=== PATIENT | female | born 1985 | race Asian ===

== ENCOUNTER 2016-11-10 11:17 | Emergency (ER) | payer SELFPAY ==
[2016-11-10 11:46] VITALS: BP 100/72; PULSE 82; RESP 18; TEMP 98.2; O2SAT 97
--- NOTE | 2016-11-10 12:06 | UCPHY ---
H & P Time Seen by Provider: 11/10/16 11:49 Patient Type: Established HPI/ROS: This patient is a patient at 9 weeks by dates and a positive home test who presents with vaginal spotting that started this morning associated with mild pelvic cramping that is nonradiating. She has no other associated symptoms. She has not seen an drop forge operator yet for this . She has no exacerbating factors for her symptoms. ROS: No fevers or chills. No lightheadedness. No nausea vomiting. She reports no urinary symptoms. No back pain. In 7 point ROS is otherwise negative. Past Medical/Surgical History: with a healthy 13 month baby boy Smoking Status: Never smoked Physical Exam: Vital signs normal General Appearance: Pleasant 31-year-old female Alert, no distress. Eyes: Pupils equal and round no pallor or injection. ENT, Mouth: Mucous membranes moist. Respiratory: There are no retractions, lungs are clear to auscultation. Cardiovascular: Regular rate and rhythm. Gastrointestinal: Soft, uterus consistent with dates with no tenderness. Bowel sounds normal. Back: No CVA tenderness Neurological: Alert without focal deficits Skin: Warm and dry, no rashes. Musculoskeletal: Neck is supple nontender. Extremities are symmetrical, full range of motion. Psychiatric: Mood and affect are normal DIFFERENTIAL DIAGNOSIS: After history and physical exam differential diagnosis was considered for ectopic , threatened miscarriage, miscarriage Constitutional: Initial Vital Signs Temperature (C) 36.8 C 11/10/16 11:43 Heart Rate 82 11/10/16 11:43 Respiratory Rate 18 11/10/16 11:43 Blood Pressure 100/72 11/10/16 11:43 O2 Sat (%) 97 11/10/16 11:43 O2 Delivery Mode Room Air Allergies/Adverse Reactions: No Known Allergies Allergy (Verified 11/10/16 11:42) Home Medications: Medication Instructions Recorded NK [No Known Home Meds] 11/10/16 Medical Decision Making - Diagnostics Imaging: Pelvic ultrasound: A 7 week [address] Obie Shine-radiologist with no ovarian abnormalities. No subchorionic hemorrhage. No other abnormalities. ED Course/Re-evaluation: I counseled patient regarding threatened miscarriage. No UTI or other complicating factors. She is stable without anemia. We ruled out ectopic . - Data Points Laboratory Results: Laboratory Results 11/10/16 12:15 17 11/10/16 11/10/16 12:45 12:15 12:15 WBC 5.84 10^3/uL 10^3/uL (3.80-9.50) RBC 5.07 10^6/uL 10^6/uL (4.18-5.33) Hgb 14.7 g/dL g/dL (12.6-16.3) Hct 44.4 % % (38.0-47.0) MCV 87.6 fL fL (81.5-99.8) MCH 29.0 pg pg (27.9-34.1) MCHC 33.1 g/dL g/dL (32.4-36.7) RDW 13.2 % % (11.5-15.2) Plt Count 247 10^3/uL 10^3/uL (150-400) MPV 11.2 fL fL (8.7-11.7) Neut % (Auto) 68.8 % % (39.3-74.2) Lymph % (Auto) 26.0 % % (15.0-45.0) [place] % (Auto) 4.1 % L % (4.5-13.0) Eos % (Auto) 0.5 % L % (0.6-7.6) Baso % (Auto) 0.3 % % (0.3-1.7) Nucleat RBC Rel Count 0.0 % % (0.0-0.2) Absolute Neuts (auto) 4.01 10^3/uL 10^3/uL (1.70-6.50) Absolute Lymphs (auto) 1.52 10^3/uL 10^3/uL (1.00-3.00) Absolute Monos (auto) 0.24 10^3/uL L 10^3/uL (0.30-0.80) Absolute Eos (auto) 0.03 10^3/uL 10^3/uL (0.03-0.40) Absolute Basos (auto) 0.02 10^3/uL 10^3/uL (0.02-0.10) Absolute Nucleated RBC 0.00 10^3/uL 10^3/uL (0-0.01) Immature Gran % 0.3 % % (0.0-1.1) Immature Gran # 0.02 10^3/uL 10^3/uL (0.00-0.10) Beta HCG, Quant 11569.00 mIU/mL H mIU/mL (0-4.83) Urine Color YELLOW Urine Appearance CLEAR Urine pH 7.5 (5.0-7.5) Ur Specific [place] 1.015 (1.002-1.030) Urine Protein NEGATIVE (NEGATIVE) Urine Ketones NEGATIVE (NEGATIVE) Urine Blood 1+ H (NEGATIVE) Urine Nitrate NEGATIVE (NEGATIVE) Urine Bilirubin NEGATIVE (NEGATIVE) Urine Urobilinogen 0.2 EU EU (0.2-1.0) Ur Leukocyte Esterase NEGATIVE (NEGATIVE) Urine RBC 1-3 /hpf /hpf (0-3) Urine WBC 0-1 /hpf /hpf (0-3) Ur Epithelial Cells TRACE /lpf /lpf (NONE-1+) Urine Glucose NEGATIVE (NEGATIVE) Departure - Departure Disposition: Home, Routine, Self-Care Clinical Impression: Threatened miscarriage Condition: Good Instructions: Threatened Miscarriage (ED) Additional Instructions: Diagnosis: Threatened miscarriage Your ultrasound shows an intrauterine with the fetus size that appears equivalent to 7 weeks 6 days with an estimated delivery date of June 23, 2017 Plan: Drink plenty of fluids Avoid sexual intercourse until least few days after bleeding has resolved. Avoid vigorous activity that involves any significant bouncing her severe exertion until the bleeding has resolved. Follow up with the OBGYN doctor for a recheck. Call Dr. Carolina to arrange his appointment for sometime this week. Go to the emergency department for any significant worsening of symptoms despite treatment plan. Referrals: NONE *PRIMARY CARE P,. [Primary Care Provider] - As per Instructions Angie Carolina MD [Medical Doctor] - As per Instructions - PQRS PQRS Measurement: NA
[2016-11-10 12:36] LABS: % IMMATURE GRANULYOCYTES 0.3 % (0.0-1.1); ABSOLUTE IMMATURE GRANULOCYTES 0.02 10^3/uL (0.00-0.10); ADD DIFF? NO; ADD MORPH? NO; ADD SCAN? NO; ATYPICAL LYMPHOCYTE FLAG 20 (0-99); FRAGMENT RBC FLAG 0 (0-99); HEMATOCRIT 44.4 % (38.0-47.0); HEMOGLOBIN 14.7 g/dL (12.6-16.3); LEFT SHIFT FLG 0 (0-99); LIPEMIA HEMOLYSIS FLAG 80 (0-99); MEAN CELL HEMOGLOBIN CONCENTR. 33.1 g/dL (32.4-36.7); MEAN CELL VOLUME 87.6 fL (81.5-99.8); MEAN PLATELET VOLUME 11.2 fL (8.7-11.7); PLATELET CLUMPS FLAG 0 (0-99); PLATELET COUNT 247 10^3/uL (150-400); RED BLOOD CELL COUNT 5.07 10^6/uL (4.18-5.33); RED CELL DISTRIBUTION WIDTH 13.2 % (11.5-15.2)
[2016-11-10 13:11] LABS: COLOR YELLOW; LEUKOCYTE ESTERASE,URINE NEGATIVE (NEGATIVE); NITRITE,URINE NEGATIVE (NEGATIVE); PH,URINE 7.5 (5.0-7.5)
[2016-11-10 13:26] LABS: WBC,URINE 0-1 /hpf (0-3)
== END 2016-11-10 14:00 | disposition home or self-care (01) ==
LOC: CED 11:17
DX: O20.0 Threatened abortion (principal); Z3A.01 Less than 8 weeks gestation of pregnancy
CPT/HCPCS: 81003-PO; 81015-PO; 84702-PO; 85025-PO; 99214-PO; G0463-PO

== ENCOUNTER 2016-11-11 04:38 | Emergency (ER) | payer MEDICAID, OTHER ==
[2016-11-11 04:45] VITALS: RESP 16; TEMP 98.1
--- NOTE | 2016-11-11 04:54 | EDPHY ---
H & P Stated Complaint: 8 week miscarriage Time Seen by Provider: 11/11/16 04:47 HPI/ROS: Chief complaint: , vaginal bleeding HPI: 31-year-old female, who is approximately 8 weeks gestation presenting with abdominal cramping and vaginal bleeding. Patient seen yesterday at [facility] for spotting. She had an ultrasound at that time which showed a 7 week 6 day IUP. Patient states that at 2 o'clock this morning she started having increase in vaginal bleeding bleeding and has been soaking 3 pads an hour for the last 3 hours. She is having increasing cramping as well to a 4/10. She is not lightheaded. ROS: 10 point Review of Systems is negative except as noted in the HPI. Past medical history: None Medications: None Allergies: No known drug allergies Physical exam: Gen: Awake, Alert, No Distress HEENT: Nose: no rhinorrhea Eyes: PERRLA, EOMI Mouth: Moist mucosa Neck: Supple, no JVD Chest: nontender, lungs clear to auscultation Heart: S1, S2 normal, no murmur Abd: Soft, non-tender, no guarding Back: no CVA tenderness, no midline tenderness Pelvic exam: Speculum examination shows tissue passing through an open cervical os. This was removed by me. There is no residual tissue in the cervical os. She continued to have some minimal oozing. There was no active bleeding. Ext: no edema, non-tender Skin: no rash Neuro: CN II-XII intact, Sensation grossly intact, Strength 5/5 in bilateral upper and lower extremities - Personal History LMP (Females 10-55): Current Tetanus/Diphtheria Vaccine: Yes Current Tetanus Diphtheria and Acellular Pertussis (TDAP): Yes Tetanus Vaccine Date: 06/16/2015 - Medical/Surgical History Hx Asthma: No Hx Chronic Respiratory Disease: No Hx Diabetes: No Hx Cardiac Disease: No Hx Renal Disease: No Hx Cirrhosis: No Hx Alcoholism: No Hx HIV/AIDS: No Hx Splenectomy or Spleen Trauma: No Other PMH: denies - Social History Smoking Status: Never smoked Constitutional: Initial Vital Signs Temperature (C) 36.7 C 11/11/16 04:42 Heart Rate 88 11/11/16 04:42 Respiratory Rate 16 11/11/16 04:42 Blood Pressure 95/77 L 11/11/16 04:42 O2 Sat (%) 98 11/11/16 04:42 O2 Delivery Mode Room Air Allergies/Adverse Reactions: No Known Allergies Allergy (Verified 11/11/16 04:46) Home Medications: Medication Instructions Recorded NK [No Known Home Meds] 11/11/16 Medical Decision Making ED Course/Re-evaluation: 31-year-old 7 week 7 day woman with completion of miscarriage. Patient had tissue in the cervical os consistent with products of conception. This was removed by me without difficulty. Specimen was sent to pathology. Patient had minimal bleeding after that the cervical os was empty. I have checked the patient's blood bank history and she is noted to be O positive. There is no indication for RhoGAM at this time. Patient was observed in the emergency department. Bleeding slowed. She remained hemodynamically normal. Patient was discharged with follow up with OBGYN and instructions return for any concerns. Departure - Departure Disposition: Home, Routine, Self-Care Clinical Impression: Complete miscarriage Condition: Good Instructions: Miscarriage (ED) Additional Instructions: Return to the emergency department for persistent heavy bleeding, increasing pain, fevers, chills, abnormal vaginal discharge, or any other concerns. Follow up with your OBGYN in 3 or 4 days for re-evaluation. Referrals: NONE *PRIMARY CARE P,. [Primary Care Provider] - As per Instructions
[2016-11-11 05:53] VITALS: BP 102/65; PULSE 72; O2SAT 95
== END 2016-11-11 06:05 | disposition home or self-care (01) ==
DX: O03.9 Complete or unspecified spontaneous abortion without complication (principal)
CPT/HCPCS: 96374

== ENCOUNTER 2017-07-15 11:24 | Emergency (ER) | payer MEDICAID ==
[2017-07-15 11:30] VITALS: TEMP 97.9
[2017-07-15] MEDS ORDERED: NS 1,000 ML IV ONE (13:37)
[2017-07-15] MEDS ORDERED: ONDANSETRON 4 MG/2 ML VIAL IVP ONE (13:37)
--- NOTE | 2017-07-15 13:40 | EDPHY ---
H & P Time Seen by Provider: 07/15/17 13:02 HPI/ROS: CHIEF COMPLAINT: "Hyperemesis " HISTORY OF PRESENT ILLNESS: Patient is a 32-year-old female G3 para 1 with a last menstrual period 05/17/2017. She was sent in the emergency department from [facility] for ongoing nausea and vomiting-hyperemesis. Patient is roughly 8 weeks . She had significant vomiting with her previous pregnancies. Patient denies any fevers or chills. No abdominal pain. No diarrhea. No dysuria or frequency. REVIEW OF SYSTEMS: My complete review of systems is negative except as mentioned in the HPI. Past Medical/Surgical History: , hyperemesis Past surgical history: Negative Social history: The patient does not smoke Smoking Status: Never smoked Physical Exam: Vitals noted GENERAL: Well-appearing, in no acute distress, alert. HEENT: Eyes normal to inspection, normal pharynx, no signs of dehydration. NECK: No thyromegaly, no lymphadenopathy, supple. RESPIRATORY: Clear to auscultation bilaterally, no rales, rhonchi or wheezing. CVS: Regular rate and rhythm, no rubs, murmurs, or gallops. ABDOMEN: Soft, nontender, nondistended, no organomegaly. BACK: Normal to inspection, no CVA tenderness. SKIN: Normal color, no rash, warm, dry. No pallor. EXTREMITIES: No pedal edema, no calf tenderness, no Homans sign or cords, no joint swelling. NEURO/PSYCH: Alert and oriented, normal mood and affect, normal motor sensory exam. Constitutional: Initial Vital Signs Temperature (C) 36.6 C 07/15/17 11:27 Heart Rate 106 H 07/15/17 11:27 Respiratory Rate 15 07/15/17 11:27 Blood Pressure 96/71 L 07/15/17 11:27 O2 Sat (%) 97 07/15/17 11:27 O2 Delivery Mode Room Air Allergies/Adverse Reactions: No Known Allergies Allergy (Verified 11/11/16 04:46) Home Medications: Medication Instructions Recorded NK [No Known Home Meds] 11/11/16 Medical Decision Making ED Course/Re-evaluation: In the emergency department I discussed possible etiologies. I discussed treatment options. This did include Zofran. The patient understands the risks and benefits. Patient was given normal saline 1 L IV for hydration. She was given Zofran 4 mg IV for nausea. Laboratory studies were ordered. The patient has a known and is 8 weeks . Patient is mildly anemic. And gap 17. Her CO2 is 20. The on recheck the patient is doing well. She has no complaints of abdominal pain, nausea or vomiting. On repeat exam abdomen is soft, nontender nondistended. She was given warnings prior to leaving. She will return with worsening symptoms. Differential Diagnosis: My differential includes but is not limited to , hyperemesis, electrolyte abnormality, sugar abnormality, dehydration, miscarriage - Data Points Laboratory Results: Laboratory Results 07/15/17 13:40 07/15/17 13:40 07/15/17 07/15/17 13:40 13:40 WBC 6.72 10^3/uL 10^3/uL (3.80-9.50) RBC 4.32 10^6/uL 10^6/uL (4.18-5.33) Hgb 12.7 g/dL g/dL (12.6-16.3) Hct 37.3 % L % (38.0-47.0) MCV 86.3 fL fL (81.5-99.8) MCH 29.4 pg pg (27.9-34.1) MCHC 34.0 g/dL g/dL (32.4-36.7) RDW 13.1 % % (11.5-15.2) Plt Count 224 10^3/uL 10^3/uL (150-400) MPV 11.0 fL fL (8.7-11.7) Neut % (Auto) 76.1 % H % (39.3-74.2) Lymph % (Auto) 18.5 % % (15.0-45.0) [place] % (Auto) 4.5 % % (4.5-13.0) Eos % (Auto) 0.3 % L % (0.6-7.6) Baso % (Auto) 0.3 % % (0.3-1.7) Nucleat RBC Rel Count 0.0 % % (0.0-0.2) Absolute Neuts (auto) 5.12 10^3/uL 10^3/uL (1.70-6.50) Absolute Lymphs (auto) 1.24 10^3/uL 10^3/uL (1.00-3.00) Absolute Monos (auto) 0.30 10^3/uL 10^3/uL (0.30-0.80) Absolute Eos (auto) 0.02 10^3/uL L 10^3/uL (0.03-0.40) Absolute Basos (auto) 0.02 10^3/uL 10^3/uL (0.02-0.10) Absolute Nucleated RBC 0.00 10^3/uL 10^3/uL (0-0.01) Immature Gran % 0.3 % % (0.0-1.1) Immature Gran # 0.02 10^3/uL 10^3/uL (0.00-0.10) Sodium 138 mEq/L mEq/L (134-144) Potassium 3.6 mEq/L mEq/L (3.5-5.2) Chloride 101 mEq/L mEq/L (97-110) Carbon Dioxide 20 mEq/l L mEq/l (22-31) Anion Gap 17 mEq/L H mEq/L (8-16) BUN 15 mg/dL mg/dL (7-23) Creatinine 0.6 mg/dL mg/dL (0.6-1.0) Estimated GFR > 60 Glucose 71 mg/dL mg/dL (70-100) Calcium 9.6 mg/dL mg/dL (8.5-10.4) Total Bilirubin 0.4 mg/dL mg/dL (0.1-1.4) Conjugated Bilirubin 0.0 mg/dL mg/dL (0.0-0.5) Unconjugated Bilirubin 0.4 mg/dL mg/dL (0.0-1.1) AST 23 IU/L IU/L (14-46) ALT 27 IU/L IU/L (9-52) Alkaline Phosphatase 44 IU/L IU/L (38-126) Total Protein 7.0 g/dL g/dL (6.3-8.2) Albumin 4.4 g/dL g/dL (3.5-5.0) Lipase 61 IU/L IU/L (23-300) Medications Given: Discontinued Medications Sodium Chloride (Ns) 1,000 mls @ 0 mls/hr IV EDNOW ONE; Wide Open PRN Reason: Protocol Stop: 07/15/17 13:38 Last Admin: 07/15/17 13:54 Dose: 1,000 mls Ondansetron HCl (Zofran) 4 mg IVP EDNOW ONE Stop: 07/15/17 13:38 Last Admin: 07/15/17 13:54 Dose: 4 mg Departure - Departure Disposition: Home, Routine, Self-Care Clinical Impression: Nausea & vomiting Qualifiers: Vomiting type: unspecified Vomiting Intractability: intractable Qualified Code( s): R11.2 - Nausea with vomiting, unspecified Hyperemesis Qualifiers: Vomiting type: unspecified Nausea presence: with nausea Qualified Code(s): R11.2 - Nausea with vomiting, unspecified Condition: Good Instructions: Hyperemesis Gravidarum (ED) Additional Instructions: Return with worsening abdominal pain, nausea, vomiting or any other concerns. Referrals: [facility] [Provider Group] - 2-3 days, call for appt.
[2017-07-15 14:24] VITALS: RESP 16
[2017-07-15 14:24] LABS: % IMMATURE GRANULYOCYTES 0.3 % (0.0-1.1); ABSOLUTE IMMATURE GRANULOCYTES 0.02 10^3/uL (0.00-0.10); ADD DIFF? NO; ADD MORPH? NO; ADD SCAN? NO; ATYPICAL LYMPHOCYTE FLAG 20 (0-99); FRAGMENT RBC FLAG 0 (0-99); HEMATOCRIT 37.3 % (38.0-47.0); HEMOGLOBIN 12.7 g/dL (12.6-16.3); LEFT SHIFT FLG 0 (0-99); LIPEMIA HEMOLYSIS FLAG 90 (0-99); MEAN CELL HEMOGLOBIN 29.4 pg (27.9-34.1); MEAN CELL VOLUME 86.3 fL (81.5-99.8); PLATELET CLUMPS FLAG 0 (0-99); PLATELET COUNT 224 10^3/uL (150-400); RED BLOOD CELL COUNT 4.32 10^6/uL (4.18-5.33); RED CELL DISTRIBUTION WIDTH 13.1 % (11.5-15.2)
[2017-07-15 14:34] LABS: ALANINE AMINOTRANSFERASE 27 IU/L (9-52); ALBUMIN 4.4 g/dL (3.5-5.0); ALKALINE PHOSPHATASE 44 IU/L (38-126); ANION GAP 17 mEq/L (8-16); ASPARTATE AMINOTRANSFERASE 23 IU/L (14-46); BILIRUBIN,TOTAL 0.4 mg/dL (0.1-1.4); BILIRUBIN-UNCONJUGATED 0.4 mg/dL (0.0-1.1); CALCIUM 9.6 mg/dL (8.5-10.4); CARBON DIOXIDE 20 mEq/l (22-31); CHLORIDE 101 mEq/L (97-110); CREATININE 0.6 mg/dL (0.6-1.0); GLOMERULAR FILTRATION RATE > 60; GLUCOSE 71 mg/dL (70-100); POTASSIUM 3.6 mEq/L (3.5-5.2); SODIUM 138 mEq/L (134-144)
[2017-07-15 15:36] VITALS: BP 90/61; PULSE 68; O2SAT 97
== END 2017-07-15 15:37 | disposition home or self-care (01) ==
DX: O21.0 Mild hyperemesis gravidarum (principal); E86.9 Volume depletion, unspecified; Z3A.08 8 weeks gestation of pregnancy
CPT/HCPCS: 96374; J2405

== ENCOUNTER 2017-08-07 22:18 | Emergency (ER) | payer MEDICAID ==
--- NOTE | 2017-08-07 22:59 | EDPHY ---
H & P Stated Complaint: pt says 12 weeks preg, cramping/discharge starting last pm Time Seen by Provider: 08/07/17 22:38 HPI/ROS: CHIEF COMPLAINT: , cramping HISTORY OF PRESENT ILLNESS: 32-year-old SAB 2 female currently 11 weeks , followed by [facility], complaining of suprapubic cramping sensation since yesterday with passage of a "colorful discharge ". Not described as frankly bloody. No urinary abnormality. No fever no chills. No chest pain. No nausea or vomiting. No back or flank pain. PRIMARY CARE PROVIDER: [facility] REVIEW OF SYSTEMS: A ten point review of systems was performed and is negative with the exception of the items mentioned in the HPI PAST MEDICAL & SURGICAL HISTORY: SAB 2 female currently 11 weeks SOCIAL HISTORY: Nonsmoker PHYSICAL EXAM (Prior to examination, patient consented to physical exam, hands were washed and my usual and customary physical exam procedures followed) 1) GENERAL: Well-developed, well-nourished, alert and oriented. Appears to be in no acute distress. 2) HEAD: Normocephalic, atraumatic 3) HEENT: Pupils equal, round, reactive to light bilaterally. Sclera anicteric. 4) NECK: Full range of motion, no meningeal signs. 5) LUNGS: Clear auscultation bilaterally, no wheezes, no rhonchi, no retractions. 6) HEART: Regular rate and rhythm, no murmur, no heave, no gallop. 7) ABDOMEN: No guarding, tender to palpations suprapubic region, negative McBurney's point pain negative Haines's negative peritoneal sign, 8) MUSCULOSKELETAL: Moving all extremities, no focal areas of tenderness, no obvious trauma. No peripheral edema or discoloration. 9) BACK: No CVA tenderness, no midline vertebral tenderness, no fluctuance, no step-off, no obvious trauma, no visual or palpable abnormality. 10) SKIN: No rash, no petechiae. 11) Psychiatric: Patient is oriented X 3, there is no agitation. DIFFERENTIAL DIAGNOSIS: [In no particular order including but notl imited to threatened , spontaneous , demise - Personal History Tetanus Vaccine Date: 06/16/2015 - Medical/Surgical History Hx Asthma: No Hx Chronic Respiratory Disease: No Hx Diabetes: No Hx Cardiac Disease: No Hx Renal Disease: No Hx Cirrhosis: No Hx Alcoholism: No Hx HIV/AIDS: No Hx Splenectomy or Spleen Trauma: No Other PMH: denies - Social History Smoking Status: Never smoked Constitutional: Initial Vital Signs Temperature (C) 36.9 C 08/07/17 22:32 Heart Rate 101 H 08/07/17 22:32 Respiratory Rate 16 08/07/17 22:32 Blood Pressure 103/81 H 08/07/17 22:32 O2 Sat (%) 97 08/07/17 22:32 O2 Delivery Mode Room Air Allergies/Adverse Reactions: No Known Allergies Allergy (Verified 08/07/17 22:35) Home Medications: Medication Instructions Recorded Cephalexin [Keflex] 500 mg PO TID 7 Days cap 08/08/17 Medical Decision Making - Diagnostics Imaging Results: Imaging Impressions Obstetrics Ultrasound 08/07/17 22:40 Impression: 1. 11 week 5 day viable intrauterine gestation. Results called to Oli Robison PA-C, at 11:30 PM Images reviewed myself ED Course/Re-evaluation: 10:58 p.m.: Old medical records reviewed. Will obtain laboratory studies including Rh, urinalysis, pelvic ultrasound. Care of patient under supervision of secondary supervising physician Dr Browning . 12:10 a.m.: Re-evaluation I discussed her ultrasound results showing single living IUP. She is Rh positive. She is noted to have bacteriuria and pyuria. Urinalysis is cultured. She is started on Keflex. Recommend bedrest and follow up in 2 days with her OBGYN. In the meantime given usual and customary threatened precautions and instructions. - Data Points Laboratory Results: Laboratory Results 08/07/17 22:54 08/07/17 22:54 08/07/17 08/07/17 08/07/17 23:35 23:15 22:54 WBC RBC Hgb Hct MCV MCH MCHC RDW Plt Count MPV Neut % (Auto) Lymph % (Auto) [place] % (Auto) Eos % (Auto) Baso % (Auto) Nucleat RBC Rel Count Absolute Neuts (auto) Absolute Lymphs (auto) Absolute Monos (auto) Absolute Eos (auto) Absolute Basos (auto) Absolute Nucleated RBC Immature Gran % Immature Gran # Sodium 138 mEq/L mEq/L (134-144) Potassium 3.3 mEq/L L mEq/L (3.5-5.2) Chloride 104 mEq/L mEq/L (97-110) Carbon Dioxide 22 mEq/l mEq/l (22-31) Anion Gap 12 mEq/L mEq/L (8-16) BUN 9 mg/dL mg/dL (7-23) Creatinine 0.6 mg/dL mg/dL (0.6-1.0) Estimated GFR > 60 Glucose 84 mg/dL mg/dL (70-100) Calcium 9.1 mg/dL mg/dL (8.5-10.4) Beta HCG, Quant 477616.00 mIU/mL H mIU/mL (0.00-4.83) Urine Color YELLOW Urine Appearance MODERATELY TURBID Urine pH 7.0 (5.0-7.5) Ur Specific [place] 1.023 (1.002-1.030) Urine Protein NEGATIVE (NEGATIVE) Urine Ketones TRACE H (NEGATIVE) Urine Blood NEGATIVE (NEGATIVE) Urine Nitrate NEGATIVE (NEGATIVE) Urine Bilirubin NEGATIVE (NEGATIVE) Urine Urobilinogen NEGATIVE EU EU (0.2-1.0) Ur Leukocyte Esterase 1+ H (NEGATIVE) Urine RBC 5-10 /hpf H /hpf (0-3) Urine WBC 15-25 /hpf H /hpf (0-3) Ur Epithelial Cells 2+ /lpf H /lpf (NONE-1+) Calcium Oxalate Crystal PRESENT /hpf /hpf (NONE-1+) Amorphous Sediment PRESENT /hpf /hpf (NONE-1+) Urine Mucus 4+ /lpf H /lpf (NONE-1+) Urine Glucose NEGATIVE (NEGATIVE) Patient ABO/Rh O POSITIVE 08/07/17 22:54 WBC 16.33 10^3/uL H 10^3/uL (3.80-9.50) RBC 4.06 10^6/uL L 10^6/uL (4.18-5.33) Hgb 12.2 g/dL L g/dL (12.6-16.3) Hct 35.3 % L % (38.0-47.0) MCV 86.9 fL fL (81.5-99.8) MCH 30.0 pg pg (27.9-34.1) MCHC 34.6 g/dL g/dL (32.4-36.7) RDW 13.7 % % (11.5-15.2) Plt Count 255 10^3/uL 10^3/uL (150-400) MPV 10.4 fL fL (8.7-11.7) Neut % (Auto) 85.4 % H % (39.3-74.2) Lymph % (Auto) 10.8 % L % (15.0-45.0) [place] % (Auto) 3.1 % L % (4.5-13.0) Eos % (Auto) 0.2 % L % (0.6-7.6) Baso % (Auto) 0.1 % L % (0.3-1.7) Nucleat RBC Rel Count 0.0 % % (0.0-0.2) Absolute Neuts (auto) 13.95 10^3/uL H 10^3/uL (1.70-6.50) Absolute Lymphs (auto) 1.76 10^3/uL 10^3/uL (1.00-3.00) Absolute Monos (auto) 0.51 10^3/uL 10^3/uL (0.30-0.80) Absolute Eos (auto) 0.03 10^3/uL 10^3/uL (0.03-0.40) Absolute Basos (auto) 0.02 10^3/uL 10^3/uL (0.02-0.10) Absolute Nucleated RBC 0.00 10^3/uL 10^3/uL (0-0.01) Immature Gran % 0.4 % % (0.0-1.1) Immature Gran # 0.06 10^3/uL 10^3/uL (0.00-0.10) Sodium Potassium Chloride Carbon Dioxide Anion Gap BUN Creatinine Estimated GFR Glucose Calcium Beta HCG, Quant Urine Color Urine Appearance Urine pH Ur Specific [place] Urine Protein Urine Ketones Urine Blood Urine Nitrate Urine Bilirubin Urine Urobilinogen Ur Leukocyte Esterase Urine RBC Urine WBC Ur Epithelial Cells Calcium Oxalate Crystal Amorphous Sediment Urine Mucus Urine Glucose Patient ABO/Rh Medications Given: Discontinued Medications Cephalexin (Keflex 500 Mg Prepack#4) 1 btl TAKEHOME EDNOW ONE PRN Reason: Protocol Stop: 08/07/17 23:57 Last Admin: 08/07/17 23:59 Dose: 1 btl Cephalexin HCl (Keflex) 500 mg PO EDNOW ONE PRN Reason: Protocol Stop: 08/07/17 23:54 Last Admin: 08/07/17 23:59 Dose: 500 mg Departure - Departure Disposition: Home, Routine, Self-Care Clinical Impression: Threatened , Cystitis Condition: Good Instructions: Cephalexin (By mouth), Threatened Miscarriage (ED), Urinary Tract Infection in (ED) Additional Instructions: Return to emergency department if you develop fevers, chills, nausea, vomiting, worsening vaginal discharge or worsening cramping, or any other symptoms that concern you. Referrals: [facility] [Other] - 1 day without fail Prescriptions: Cephalexin [Keflex] 500 mg PO TID 7 Days cap
[2017-08-07 23:03] LABS: % IMMATURE GRANULYOCYTES 0.4 % (0.0-1.1); ABSOLUTE IMMATURE GRANULOCYTES 0.06 10^3/uL (0.00-0.10); ADD DIFF? NO; ADD MORPH? NO; ADD SCAN? NO; ATYPICAL LYMPHOCYTE FLAG 0 (0-99); FRAGMENT RBC FLAG 0 (0-99); HEMATOCRIT 35.3 % (38.0-47.0); HEMOGLOBIN 12.2 g/dL (12.6-16.3); LEFT SHIFT FLG 0 (0-99); LIPEMIA HEMOLYSIS FLAG 90 (0-99); MEAN CELL HEMOGLOBIN CONCENTR. 34.6 g/dL (32.4-36.7); MEAN CELL VOLUME 86.9 fL (81.5-99.8); MEAN PLATELET VOLUME 10.4 fL (8.7-11.7); PLATELET CLUMPS FLAG 0 (0-99); PLATELET COUNT 255 10^3/uL (150-400); RED BLOOD CELL COUNT 4.06 10^6/uL (4.18-5.33); RED CELL DISTRIBUTION WIDTH 13.7 % (11.5-15.2)
[2017-08-07 23:17] LABS: ANION GAP 12 mEq/L (8-16); CALCIUM 9.1 mg/dL (8.5-10.4); CARBON DIOXIDE 22 mEq/l (22-31); CHLORIDE 104 mEq/L (97-110); CREATININE 0.6 mg/dL (0.6-1.0); GLOMERULAR FILTRATION RATE > 60; GLUCOSE 84 mg/dL (70-100); POTASSIUM 3.3 mEq/L (3.5-5.2); SODIUM 138 mEq/L (134-144)
[2017-08-07 23:42] LABS: COLOR YELLOW; LEUKOCYTE ESTERASE,URINE 1+ (NEGATIVE); NITRITE,URINE NEGATIVE (NEGATIVE)
[2017-08-07 23:48] LABS: AMORPHOUS PRESENT /hpf (NONE-1+); MUCUS 4+ /lpf (NONE-1+); WBC,URINE 15-25 /hpf (0-3)
[2017-08-07] MEDS ORDERED: CEPHALEXIN 500 MG CAP PO ONE (23:53)
[2017-08-07] MEDS ORDERED: CEPHALEXIN 500MG PREPACK#4 BTL TAKEHOME ONE (23:56)
[2017-08-08 00:03] VITALS: BP 99/66; RESP 16
[2017-08-08 00:25] VITALS: PULSE 89; TEMP 98.1; O2SAT 99
== END 2017-08-08 00:24 | disposition home or self-care (01) ==
DX: O20.0 Threatened abortion (principal); O23.11 Infections of bladder in pregnancy, first trimester; B96.89 Other specified bacterial agents as the cause of diseases classified elsewhere; Z3A.12 12 weeks gestation of pregnancy

== ENCOUNTER → 2017-08-11 | Outpatient (CLI) | payer MEDICAID | LOC: FIMAGING 11:17 | PROVIDERS: ATTEND Advanced Practice Midwife | DX: Z34.81 Encounter for supervision of other normal pregnancy, first trimester (principal); Z3A.12 12 weeks gestation of pregnancy ==

== ENCOUNTER 2017-08-16 19:01 | Emergency (ER) | payer MEDICAID ==
[2017-08-16] MEDS ORDERED: NS 1,000 ML IV ONE (19:26)
--- NOTE | 2017-08-16 19:32 | EDPHY ---
H & P Stated Complaint: vag bleed, 13 weeks +ob Time Seen by Provider: 08/16/17 19:17 - Personal History Current Tetanus Diphtheria and Acellular Pertussis (TDAP): Yes Tetanus Vaccine Date: 06/16/2015 - Medical/Surgical History Hx Asthma: No Hx Chronic Respiratory Disease: No Hx Diabetes: No Hx Cardiac Disease: No Hx Renal Disease: No Hx Cirrhosis: No Hx Alcoholism: No Hx HIV/AIDS: No Hx Splenectomy or Spleen Trauma: No Other PMH: denies - Social History Smoking Status: Never smoked Constitutional: Initial Vital Signs Temperature (C) 37.1 C 08/16/17 19:07 Heart Rate 106 H 08/16/17 19:07 Respiratory Rate 16 08/16/17 19:07 Blood Pressure 118/82 H 08/16/17 19:07 O2 Sat (%) 98 08/16/17 19:07 O2 Delivery Mode Room Air Allergies/Adverse Reactions: No Known Allergies Allergy (Verified 08/07/17 22:35) Home Medications: Medication Instructions Recorded NK [No Known Home Meds] 08/16/17 Medical Decision Making ED Course/Re-evaluation: CHIEF COMPLAINT: Abdominal cramping HISTORY OF PRESENT ILLNESS: The patient is a 13 week- AB2 32 y/o female arriving with her complaining of abdominal cramping and vaginal bleeding onset today. She has a history of prior miscarriages and was evaluated here 9 days ago for abdominal cramping and brownish vaginal discharge. At that time she had an 53-hlua-0-day IUP on ultrasound. Today she saw a larger reddish- pink clot when wiping with toilet paper. She denies nausea, vomiting, urinary complaints, fever, chills, chest pain, dyspnea, flank pain. She is normally healthy. REVIEW OF SYSTEMS: A 10 point review of systems was performed and is negative with the exception of the elements mentioned in the history of present illness. PHYSICAL EXAM: HR, BP, O2 Sat, RR. Temp noted General Appearance: Alert, well hydrated, appropriate, and non-toxic appearing. Head: Atraumatic without scalp tenderness or obvious injury Eyes: Pupils equal, round, reactive to light and accommodation, EOMI, no trauma , no injection. Nose: Atraumatic, no rhinorrhea, clear. Throat: Mucus membranes moist. Neck: Supple Respiratory: No retractions, no distress, no wheezes, and no accessory muscle use. Lungs are clear to auscultation bilaterally. Cardiovascular: Regular rate and rhythm, no murmurs, rubs, or gallops. Good capillary refill all extremities. Gastrointestinal: Abdomen is soft, mild diffuse tenderness, non-distended, no masses, no rebound, no guarding, no peritoneal signs. Musculoskeletal: Normal active ROM of all extremities, atraumatic. Neurological: Alert, appropriate, and interactive. The patient has non-focal cranial nerves, motor, sensory, and cerebellar exam. Skin: No rashes, good turgor, no nodules on palpation. PAST MEDICAL HISTORY: AB 2 PAST SURGICAL HISTORY: Noncontributory SOCIAL HISTORY: at bedside. Nonsmoker. OBGYN: [facility] DIAGNOSTICS/PROCEDURES/CRITICAL CARE TIME: Obstetrics US: subchorionic hemorrhage. IUP with heart rate. DIFFERENTIAL DIAGNOSIS: The differential diagnosis for the patient's vaginal bleeding included but was not limited to subchorionic hemorrhage, threatened miscarriage, ectopic , menses, miscarriage, and dysfunctional uterine bleeding. MEDICAL DECISION MAKING: This is a healthy 32 y/o female who is 13-weeks with a history of miscarriage that presents with abdominal cramping and bloody vaginal discharge. She has mild diffuse abdominal tenderness on exam. Symptoms are concerning for threatened miscarriage. Plan for IV, labs, obstetrics US. Rhogam if indicated. 1L IV NS administered. US shows subchorionic hemorrhage and IUP with heart rate. Reassessed patient and discussed findings. She will be discharged with instructions to follow up with her OBGYN in the next 1-2 days. Return precautions discussed. She agrees with plan. - Data Points Laboratory Results: Laboratory Results 08/16/17 19:20 08/16/17 19:20 08/16/17 08/16/17 08/16/17 19:20 19:20 19:20 WBC 18.03 10^3/uL H 10^3/uL (3.80-9.50) RBC 4.07 10^6/uL L 10^6/uL (4.18-5.33) Hgb 12.1 g/dL L g/dL (12.6-16.3) Hct 35.6 % L % (38.0-47.0) MCV 87.5 fL fL (81.5-99.8) MCH 29.7 pg pg (27.9-34.1) MCHC 34.0 g/dL g/dL (32.4-36.7) RDW 13.8 % % (11.5-15.2) Plt Count 260 10^3/uL 10^3/uL (150-400) MPV 10.3 fL fL (8.7-11.7) Neut % (Auto) 86.9 % H % (39.3-74.2) Lymph % (Auto) 8.7 % L % (15.0-45.0) [place] % (Auto) 3.2 % L % (4.5-13.0) Eos % (Auto) 0.2 % L % (0.6-7.6) Baso % (Auto) 0.2 % L % (0.3-1.7) Nucleat RBC Rel Count 0.0 % % (0.0-0.2) Absolute Neuts (auto) 15.66 10^3/uL H 10^3/uL (1.70-6.50) Absolute Lymphs (auto) 1.56 10^3/uL 10^3/uL (1.00-3.00) Absolute Monos (auto) 0.58 10^3/uL 10^3/uL (0.30-0.80) Absolute Eos (auto) 0.04 10^3/uL 10^3/uL (0.03-0.40) Absolute Basos (auto) 0.04 10^3/uL 10^3/uL (0.02-0.10) Absolute Nucleated RBC 0.00 10^3/uL 10^3/uL (0-0.01) Immature Gran % 0.8 % % (0.0-1.1) Immature Gran # 0.15 10^3/uL H 10^3/uL (0.00-0.10) Sodium 136 mEq/L mEq/L (134-144) Potassium 3.4 mEq/L L mEq/L (3.5-5.2) Chloride 101 mEq/L mEq/L (97-110) Carbon Dioxide 21 mEq/l L mEq/l (22-31) Anion Gap 14 mEq/L mEq/L (8-16) BUN 7 mg/dL mg/dL (7-23) Creatinine 0.5 mg/dL L mg/dL (0.6-1.0) Estimated GFR > 60 Glucose 79 mg/dL mg/dL (70-100) Calcium 9.1 mg/dL mg/dL (8.5-10.4) Beta HCG, Quant Pending Patient ABO/Rh O POSITIVE Medications Given: Discontinued Medications Sodium Chloride (Ns) 1,000 mls @ 0 mls/hr IV ONCE ONE; Wide Open PRN Reason: Protocol Stop: 08/16/17 19:27 Last Admin: 08/16/17 19:28 Dose: 1,000 mls Departure - Departure Disposition: Home, Routine, Self-Care Clinical Impression: Subchorionic hemorrhage in first trimester Qualifiers: Fetus number: single or unspecified fetus Qualified Code(s): O41.8X10 - Other specified disorders of amniotic fluid and membranes, first trimester, not applicable or unspecified Condition: Good Instructions: Subchorionic Hemorrhage (ED) Additional Instructions: Follow up with your OBGYN in the next 1-2 days. Return to the ED for severe pain , heavy vaginal bleeding, lightheadedness, fainting, or other worsening of condition. Referrals: Cathie Guerrero MD [Medical Doctor] - As per Instructions Report Scribed for: Vishal Farrell Report Scribed by: Isha Mcclendon Date of Report: 08/16/17 Time of Report: 19:33
[2017-08-16 19:56] LABS: PLATELET COUNT 260 10^3/uL (150-400)
[2017-08-16 21:16] VITALS: BP 95/67; PULSE 83; RESP 18; TEMP 98.6; O2SAT 99
== END 2017-08-16 21:16 | disposition home or self-care (01) ==
DX: O41.8X10 Other specified disorders of amniotic fluid and membranes, first trimester, not applicable or unspecified (principal); E86.9 Volume depletion, unspecified; Z3A.13 13 weeks gestation of pregnancy

== ENCOUNTER 2017-09-05 05:30 | Day surgery (SDC) | payer MEDICAID ==
--- NOTE | 2017-09-04 23:34 | GHP ---
[f rep st] PREOP HISTORY AND PHYSICAL DATE OF ADMISSION: 09/05/2017 Preoperative note for surgery planned on 09/05/2017 on the Obstetric service. HISTORY UPON PRESENTATION: The patient is a 32-year-old, G4, P1, A2, at 15 weeks gestation from sure last menstrual period of 05/17 with a consistent 6 week ultrasound; however, with a missed AB measur ing only 12 weeks and 1 day. Ultrasound performed on 09/01/2017 showing missed AB with also signs of oligohydramnios. Patient was counseled as to options and wanted to proceed with definitive manageme nt with a D and C as soon as possible. The patient has had complications with this with va ginal bleeding for which she was seen in the emergency room, and at that point, had a viable intraute rine . She began having reddish bleeding on 08/16 at 13+ weeks and [facility] . The patient has off and on had had brownish bleeding since t hat time and low back cramping. Patient was seen at a visit when the ultrasound was perform ed that showed a missed AB measuring only 12 weeks 1 day with no cardiac activity. A small sub chorionic hemorrhage had been noted on the 08/16 ultrasound. The patient also had a 1st trimester ul trasound with the maternal specialist showing normal nuchal translucency and nasal bone at 12 w eeks and 2 days full. The patient had been seen in a clinic visit with hyperemesis at 8 weeks and wa s managing with Hector and Joya. At in 9 weeks, she also was noted to have BV and yeast and alan bryce with Monistat and Metrogel. She came in with symptoms of pink-red discharge and dysuria on 08/15 and had a urinalysis that was negative except for blood. The patient was felt to possibly have an e julia bladder infection. However, the culture was negative except for yeast noted at a low count. Th e patient was appropriately devastated and tearful on the visit on 09/01. LABS: Maternal blood type O positive with negative antibody screen. RPR nonreactive. Rub david immune. Hepatitis B surface antigen negative. HIV negative. Patient had verified testing, whi ch was negative. Pap smear was normal, and gonorrhea and chlamydia were negative. Standard genetic panel also was tested and was negative. PAST MEDICAL HISTORY: Patient with no known medical problems. PAST SURGICAL HISTORY: Only a D and E in 2010 for trisomy 21. PAST OBSTETRIC HISTORY: In 2010, trisomy 21 diagnosed at 20 weeks, and the patient had a D and E in [place]. In July 2015, a viable male at 38 weeks and 4 days at 7 pounds, delivered by vaginal, un complicated delivery. In October 2016, an SAB at 7 weeks. ALLERGIES: The patient has no known drug allergies. CURRENT MEDICATIONS: Only vitamins. The patient was occasionally taking Diclegis and had r ecently done a course of Monistat and recent Diflucan for persistent yeast symptoms. SOCIAL HISTORY: The patient is , lives with her and her son. Patient is a nonsmoker. No alcohol or drug use. REVIEW OF SYSTEMS: A 10-point review of systems was done, and pertinent positives and negatives note d above. PHYSICAL EXAMINATION: GENERAL: At the time of preop on 09/01, the patient was emotionally distraugh t; however, in no physical discomfort. VITAL SIGNS: Patient clinically afebrile. Blood pressure wa s 90/48. Weight 93 pounds. LUNGS: Clear to auscultation bilaterally. CARDIOVASCULAR: Regular rat e and rhythm. ABDOMEN: Soft and nontender. EXTREMITIES: Nontender, and no edema. ASSESSMENT: Missed at 15 weeks measuring only 12 weeks 1 day with bleeding off and on over the last several weeks. Maternal blood type O positive. PLAN: Will proceed with a D and C on 09/05/2017. The patient will be given doxycycline prior to the procedure. The patient would like to have the testing of Anora done. Patient will sign the consent form preoperatively at the bedside. /[id number]/MODL
[2017-09-05] MEDS ORDERED: DOXYCYCLINE HYCLATE 100 MG CAP/TAB PO ONE (05:39)
[2017-09-05] MEDS ORDERED: LR 1,000 ML IV ONE (05:39)
--- NOTE | 2017-09-05 07:08 | PDANEPAE ---
ANE History of Present Illness 12 wk miscarriage ANE Past Medical History Past Medical History: negative - Pulmonary History Hx Oxygen in Use at Home: No Hx Sleep Apnea: No - Endocrine History Hx Diabetes: No - Chronic Pain History Chronic Pain: No ANE Review of Systems Review of systems is: negative Review of Systems: ANE Patient History - Allergies Allergies/Adverse Reactions: No Known Allergies Allergy (Verified 08/07/17 22:35) - Home Medications Home Medications: NK [No Known Home Meds] 08/16/17 [Last Taken Unknown] - NPO status NPO Since - Liquids (Date): 09/04/17 NPO Since - Liquids (Time): 21:00 NPO Since - Solids (Date): 09/04/17 NPO Since - Solids (Time): 19:00 - Smoking Hx Smoking Status: Never smoked ANE Labs/Vital Signs - Vital Signs Blood Pressure: 88/63 Heart Rate: 81 Respiratory Rate: 12 O2 Sat (%): 97 Height: 154.94 cm Weight: 42.184 kg ANE Physical Exam - Airway Neck exam: FROM Mallampati Score: Class 2 Mouth exam: normal dental/mouth exam - Pulmonary Pulmonary: no respiratory distress - Cardiovascular Cardiovascular: regular rate and rhythym - ASA Status ASA Status: I ANE Anesthesia Plan Anesthesia Plan: MAC (po abx preop by OBMD)
[2017-09-05] MEDS ORDERED: MEPERIDINE 25 MG/ML SYR IVP PRN (07:19)
[2017-09-05] MEDS ORDERED: ONDANSETRON 4 MG/2 ML VIAL IVP PRN (07:19)
[2017-09-05] MEDS ORDERED: NALOXONE HCL 0.4 MG/ML INJ IVP PRN (07:19)
[2017-09-05] MEDS ORDERED: fentaNYL 100 MCG/2 ML INJ IVP PRN (07:19)
[2017-09-05] MEDS ORDERED: HYDROmorphONE/DILAUDID 1 MG/ML INJ IVP PRN (07:19)
[2017-09-05] MEDS ORDERED: PHENYLEPHRINE HCL 100 MCG/ML SYR IVP PRN (07:19)
[2017-09-05] MEDS ORDERED: HYDROCODONE/APAP 5/325 TAB PO PRN (07:19)
[2017-09-05] MEDS ORDERED: fentaNYL 100 MCG/2 ML INJ ONE (07:29)
[2017-09-05] MEDS ORDERED: PROPOFOL/EMULSION 500 MG/50 ML BOTTLE IV ONE (07:29)
[2017-09-05] MEDS ORDERED: LIDOCAINE 2% 5 ML SDV ONE (07:30)
[2017-09-05] MEDS ORDERED: MIDAZOLAM 2 MG/2 ML VIAL ONE (07:30)
[2017-09-05] MEDS ORDERED: ONDANSETRON 4 MG/2 ML VIAL ONE (07:30)
[2017-09-05] MEDS ORDERED: MISOPROSTOL 200 MCG TAB ONE (08:10)
--- NOTE | 2017-09-05 08:56 | POSTANESTH ---
Post Anesthetic Evaluation Cardiovascular Status: Normal, Stable Respiratory Status: Normal, Stable Level of Consciousness/Mental Status: Can Participate in Eval Pain Control: Adequate, Prn Tx Ordered Nausea/Vomiting Control: Adequate, Prn Tx Ordered Complications Possibly Related to Anesthesia: None Noted
--- NOTE | 2017-09-05 09:15 | POSTOPPROG ---
Post Op Note Date of Operation: 09/05/17 Surgeon: Angie Carolina Anesthesiologist: Obie Villa MD Anesthesia: Other (Specify) (MAC - heavy) Pre-op Diagnosis: MAB at 15 wks gest and 12 wks size Post-op Diagnosis: same Indication: vag bleeding for weeks, last viable u/s at 13wks -08/16, but 12w1d, MAB-09/01 Procedure: D and C Findings: dilated easily to 12 1/2 Torri, #12 tip used - abundant tissue, u/s empty Inf/Abcess present in the surg proc area at time of surgery?: No Depth: Organ Space EBL: 50-100 Total fluids administered: 1100 Complications: u/s transducer malfuntioning, u/s replaced - dilation held until u/s ready. Specimen(s): POCs sent for Anora, then to path
[2017-09-05 09:33] VITALS: TEMP 98.4
[2017-09-05 10:05] VITALS: PULSE 67; RESP 18; O2SAT 97
[2017-09-05 10:06] VITALS: BP 87/52
[2017-09-05] MEDS ORDERED: KETOROLAC 30 MG/1 ML SDV IVP SCH (12:00)
== END 2017-09-05 11:00 | disposition home or self-care (01) ==
LOC: FOBOP 05:30
PROVIDERS: ATTEND Obstetrics & Gynecology
PROC: 10D17ZZ Extraction of Products of Conception, Retained, Via Natural or Artificial Opening (ICD-10-PCS; principal; 2017-09-05)
DX: O02.1 Missed abortion (principal); Z3A.15 15 weeks gestation of pregnancy
CPT/HCPCS: J2250; J2405; J2704; J3010

== ENCOUNTER 2018-09-03 20:02 | Emergency (ER) | payer MEDICAID ==
[2018-09-03] MEDS ORDERED: ONDANSETRON 4 MG/2 ML VIAL IVP ONE (20:22)
[2018-09-03] MEDS ORDERED: NS 1,000 ML IV ONE (20:22)
--- NOTE | 2018-09-03 20:30 | EDPHY ---
H & P Time Seen by Provider: 09/03/18 20:07 HPI/ROS: CHIEF COMPLAINT: Abdominal pain HISTORY OF PRESENT ILLNESS: Patient is a 33-year-old female presents emergency department abdominal pain. Patient states she has had 2-3 days of lower abdominal discomfort. She describes cramping. It radiates to her back bilaterally. Patient is also on her menses. This feels different. Patient reports nausea with nonbloody vomiting. Patient has also had multiple episodes of nonbloody diarrhea. She denies dysuria frequency. No fevers or chills. No sick contacts. Patient denies any previous surgeries. REVIEW OF SYSTEMS: 10 systems were reveiwed and are negative with the exception of the elements mentioned in the history of present illness. Past Medical/Surgical History: Negative Past surgical history: Negative Social history: Patient does not smoke Smoking Status: Never smoked Physical Exam: Vitals noted GENERAL: Well-appearing, in no acute distress, alert. HEENT: Eyes normal to inspection, normal pharynx, no signs of dehydration. NECK: Normal, supple. RESPIRATORY: Clear to auscultation bilaterally, no rales, rhonchi or wheezing. CVS: Regular rate and rhythm, no rubs, murmurs, or gallops. ABDOMEN: Soft, nontender, nondistended, no organomegaly. Benign. BACK: Normal to inspection, no CVA tenderness. SKIN: Normal color, no rash, warm, dry. No pallor. EXTREMITIES: No pedal edema, no calf tenderness, no Homans sign or cords, no joint swelling. NEURO/PSYCH: Alert and oriented, normal mood and affect, normal motor sensory exam. Constitutional: Initial Vital Signs Temperature (C) 36.8 C 09/03/18 20:13 Heart Rate 76 09/03/18 20:13 Respiratory Rate 16 09/03/18 20:13 Blood Pressure 114/77 09/03/18 20:13 O2 Sat (%) 98 09/03/18 20:13 O2 Delivery Mode Room Air Allergies/Adverse Reactions: No Known Allergies Allergy (Verified 09/03/18 20:12) Home Medications: Medication Instructions Recorded Control Pill 09/03/18 Cephalexin [Keflex (*)] 500 mg PO TID 3 Days cap 09/03/18 Metoclopramide [Reglan 5 mg (*)] 5 mg PO TID PRN #7 tab 09/03/18 Ondansetron Odt [Zofran Odt 4 mg 4 mg PO Q4PRN PRN #7 tab 09/03/18 (*)] Medical Decision Making ED Course/Re-evaluation: In the emergency department I discussed possible etiologies with the patient. I answered all her questions. IV was placed. Patient given Zofran 4 mg IV for nausea. She was given normal saline 1 L IV for hydration. Laboratory studies were ordered. Patient states that Zofran causes her constipation. She refused medication. She has not want any pain medication. Patient's CBC was unremarkable. Chemistry panel is normal. is negative. The UA shows positive leuk esterase. A urine culture was sent. 2109: I rechecked the patient. She was lying comfortably in bed. I discussed the results and answered all her questions. On re-examination abdomen was soft , nontender nondistended. The patient agreed to take Toradol 15 mg IV. 2144: On recheck the patient was doing well. Because the patient is having abdominal cramping and the leuk esterase was positive patient will be treated with antibiotics. Urine culture was sent. Differential Diagnosis: My differential includes but is not limited to viral illness, appendicitis, cholecystitis, cholangitis, pancreatitis, menses, , ectopic , small-bowel obstruction, perforation, urinary tract infection, pyelonephritis, kidney stone - Data Points Laboratory Results: 09/03/18 20:34 POC Sodium 142 mEq/L mEq/L (135-145) POC Potassium 3.4 mEq/L mEq/L (3.3-5.0) POC Chloride 106.0 mEq/L mEq/L (97-110) POC Total CO2 24 mEq/L mEq/L (22-31) POC BUN 14 mg/dL mg/dL (7-23) POC Creatinine 0.7 mg/dL mg/dL (0.6-1.0) POC Glucose 95 mg/dL mg/dL (70-100) POC Calcium 9.4 mg/dL mg/dL (8.5-10.4) Medications Given: Discontinued Medications Sodium Chloride (Ns) 1,000 mls @ 0 mls/hr IV ONCE ONE PRN Reason: Wide Open Stop: 09/03/18 20:23 Last Admin: 09/03/18 20:43 Dose: 1,000 mls Ketorolac Tromethamine (Toradol) 15 mg IVP EDNOW ONE Stop: 09/03/18 21:07 Last Admin: 09/03/18 21:14 Dose: 15 mg Ondansetron HCl (Zofran) 4 mg IVP EDNOW ONE Stop: 09/03/18 20:23 Last Admin: 09/03/18 20:44 Dose: Not Given Ondansetron HCl (Zofran Odt 4 Mg Prepack#2) 1 btl TAKEHOME EDNOW ONE Stop: 09/03/18 20:32 Last Admin: 09/03/18 20:44 Dose: Not Given Point of Care Test Results: CBC CBC Collection Date 09/03/18 CBC Collection Time 20:25 WBC 7.5 RBC 4.53 HGB 13.0 HCT 38.8 PLT 279 Neut # 5.8 Neut 76.9 LYMPH # 1.3 LYMPH 17.3 Other WBC # 0.4 Other WBC 5.8 MCV 85.7 Chemistry 09/03/18 20:34 POC Sodium 142 mEq/L mEq/L (135-145) POC Potassium 3.4 mEq/L mEq/L (3.3-5.0) POC Chloride 106.0 mEq/L mEq/L (97-110) POC Total CO2 24 mEq/L mEq/L (22-31) POC BUN 14 mg/dL mg/dL (7-23) POC Creatinine 0.7 mg/dL mg/dL (0.6-1.0) POC Glucose 95 mg/dL mg/dL (70-100) POC Calcium 9.4 mg/dL mg/dL (8.5-10.4) Urine Collection Date 09/03/18 Collection Time 20:30 HCG Results Negative Urine Dip Collection Date 09/03/18 Collection Time 20:30 Specific [place] (1.002-1.030) 1.025 PH (5.0-7.5) 6.5 Leukocytes (Negative) 1+ Nitrites (Negative) Negative Protein (Negative) Negative Glucose (Negative) Negative Ketones (Negative) 1+ Urobilnogen (0.2-1.0 EU) 0.2 Bilirubin (Negative) Negative Blood (Negative) 2+ Departure - Departure Disposition: Home, Routine, Self-Care Clinical Impression: Abdominal pain Qualifiers: Abdominal location: lower abdomen, unspecified Qualified Code(s): R10.30 - Lower abdominal pain, unspecified Condition: Good Instructions: Abdominal Pain (ED) Additional Instructions: Return with increasing pain, vomiting, fever, or any other concerns. Referrals: Mary Butcher DO [Doctor of Osteopathy] - 2-3 days, if not improved Prescriptions: Cephalexin [Keflex (*)] 500 mg PO TID 3 Days cap Metoclopramide [Reglan 5 mg (*)] 5 mg PO TID PRN #7 tab PRN Reason: Nausea/Vomiting, Use 1st Ondansetron Odt [Zofran Odt 4 mg (*)] 4 mg PO Q4PRN PRN #7 tab PRN Reason: For Nausea & Vomiting
[2018-09-03] MEDS ORDERED: ONDANSETRON 4MG PREPACK#2 BTL TAKEHOME ONE (20:31)
[2018-09-03] MEDS ORDERED: KETOROLAC 15 MG/1 ML SDV IVP ONE (21:06)
[2018-09-03] MEDS ORDERED: KETOROLAC 15 MG/1 ML SDV ONE (21:07)
[2018-09-03] MEDS ORDERED: CEPHALEXIN 500MG PREPACK#4 BTL TAKEHOME ONE (21:46)
[2018-09-03 22:25] VITALS: BP 110/70
== END 2018-09-03 22:25 | disposition home or self-care (01) ==
LOC: CED 20:02
DX: R10.30 Lower abdominal pain, unspecified (principal); E86.9 Volume depletion, unspecified
CPT/HCPCS: 80048-ER; 96361-ER; 96374-ER; 99284-ER; J1885; J2405